=== PATIENT | female | born 1935 | race Caucasian/White ===

== ENCOUNTER 2017-11-12 18:51 | Emergency (ER) | payer OTHER, BC ==
[~2017-11-12] VITALS: Ht 142.2 cm; Wt 45.8 kg
[~2017-11-12 18:51] MED LIST: ARAVA10 MG PO; CALCIUM + D SO1 EACH PO; CELEXA10 MG PO; DILANTIN100 MG PO; FOLIC ACID1 MG PO; LEUCOVORIN CALCI5 MG PO; MEDROL8 MG PO; METHOTREXATE2.5 MG PO; MICROZIDE12.5 M1 PO; MYRBETRIQ50 MG PO; PHENOBARBITAL16.2 MG PO; TYLENOL REGULA325 MG PO
[2017-11-12 20:55] LABS: HEMOGLOBIN 9.4 G/DL (11.9-15.5); MCHC 33.6 G/DL (30.0-36.0); RBC DIS.WIDTH-CV 12.4 % (11.8-14.6); RBC DIS.WIDTH-SD 43.3 % (39-53); RED BLOOD COUNT 2.94 M/uL (3.80-5.20)
[2017-11-12 21:00] LABS: INTER. NORMALIZED RATIO 1.1
[2017-11-12 21:03] LABS: MCV 95.2 FL (83-99); PLATELET COUNT 145 K/uL (156-360); PTT 24.6 SEC (25-37)
[2017-11-12 21:04] LABS: CHLORIDE 107 mEq/L (99-109); POTASSIUM 3.8 mEq/L (3.7-5.4); SODIUM 140 mEq/L (136-147)
[2017-11-12 21:06] LABS: GLUCOSE 84 mg/dL (70-99)
[2017-11-12 21:10] LABS: CREATININE 0.7 mg/dL (0.6-1.3); GFR ESTIMATE (CALCULATED) > 59 mL/min/
[2017-11-12 21:11] LABS: UREA NITROGEN (BUN) 17 mg/dL (9-23)
[2017-11-12] MEDS ORDERED: LOVENOX40 MG/0.4 SC (21:23)
[2017-11-12 22:00] VITALS: BP 149/84
[2017-11-12] MEDS ORDERED: COUMADIN5 MG PO (22:05)
== END 2017-11-12 22:00 | disposition home or self-care (01) ==
LOC: EME 18:51
PROVIDERS: Emergency Medicine
DX: I82.412 Acute embolism and thrombosis of left femoral vein (principal); I89.0 Lymphedema, not elsewhere classified; G40.909 Epilepsy, unspecified, not intractable, without status epilepticus
CPT/HCPCS: 80048; 85027; 85610; 85730; 93971; 99281; 99284; J1650

== ENCOUNTER 2017-11-15 08:11 | Emergency (ER) | payer OTHER, BC ==
[~2017-11-15] VITALS: Ht 137.2 cm; Wt 44.1 kg
[~2017-11-15 08:11] MED LIST changes: +COUMADIN5 MG PO; +LOVENOX40 MG/0.4 SC
[2017-11-15 09:00] LABS: BASOPHIL (%) 0.3 % (0-1); EOSINOPHIL (%) 0.7 % (0-5); EOSINOPHIL COUNT 0.1 K/uL (0-0.3); HEMOGLOBIN 9.3 G/DL (11.9-15.5); IMMATURE GRANULOCYTE (%) 0.3 % (0.0-0.7); LYMPHOCYTE (%) 12.1 % (15-42); LYMPHOCYTE COUNT 0.8 K/uL (1.0-2.8); MCH 31.3 PG (29.0-34.0); MCHC 33.2 G/DL (30.0-36.0); MCV 94.3 FL (83-99); MONOCYTE (%) 4.6 % (3-12); MONOCYTE COUNT 0.3 K/uL (0-0.8); NEUTROPHIL COUNT 5.7 K/uL (1.8-6.4); PLATELET COUNT 154 K/uL (156-360); RBC DIS.WIDTH-CV 12.4 % (11.8-14.6); RBC DIS.WIDTH-SD 42.8 % (39-53); RED BLOOD COUNT 2.97 M/uL (3.80-5.20); WHITE BLOOD COUNT 6.9 K/uL (4.1-10.2)
[2017-11-15 09:02] LABS: INTER. NORMALIZED RATIO 1.7
[2017-11-15 09:06] LABS: ALBUMIN 3.1 g/dL (3.2-4.8); CHLORIDE 104 mEq/L (99-109); POTASSIUM 3.5 mEq/L (3.7-5.4); SODIUM 141 mEq/L (136-147)
[2017-11-15 09:08] LABS: GLUCOSE 90 mg/dL (70-99)
[2017-11-15 09:09] LABS: TOTAL PROTEIN 6.5 g/dL (6.4-8.3)
[2017-11-15 09:10] LABS: TOTAL BILIRUBIN 0.3 mg/dL (0.0-1.0)
[2017-11-15 09:12] LABS: ALKALINE PHOSPHATASE 143 IU/L (3-129); CREATININE 0.7 mg/dL (0.6-1.3); GFR ESTIMATE (CALCULATED) > 59 mL/min/
[2017-11-15 09:13] LABS: UREA NITROGEN (BUN) 16 mg/dL (9-23)
[2017-11-15 09:14] LABS: AST (GOT) 31 IU/L (2-34)
[2017-11-15 09:15] LABS: ALT (GPT) 18 IU/L (3-49)
[2017-11-15 09:23] LABS: BILIRUBIN NEGATIVE; BLOOD SMALL; COLOR YELLOW ((YELLOW)); GLUCOSE (STRIP) NEGATIVE; KETONES NEGATIVE; LEUKOCYTES LARGE; NITRITE NEGATIVE; PROTEIN (STRIP) 30; SPECIFIC GRAVITY 1.013 (1.000-1.030); UROBILINOGEN 0.2 MG/DL (0.2-1.0)
[2017-11-15 09:27] LABS: APPEARANCE CLOUDY ((CLEAR))
[2017-11-15 09:39] LABS: BACTERIA RARE /HPF; EPITHELIAL CELLS RARE /HPF; MUCUS 1+ /LPF; RED BLOOD CELLS 20-30 /HPF (0-5); UCUL ADDED? YES; WHITE BLOOD CELLS TNTC /HPF (0-5)
[2017-11-15] MEDS ORDERED: KEFLEX500 MG PO (12:50)
[2017-11-15 13:50] VITALS: BP 135/63
== END 2017-11-15 13:50 ==
LOC: EME 08:11
PROVIDERS: Nurse Practitioner Family
DX: N39.0 Urinary tract infection, site not specified (principal); R50.9 Fever, unspecified; Z86.718 Personal history of other venous thrombosis and embolism; Z79.01 Long term (current) use of anticoagulants; D64.9 Anemia, unspecified; G40.909 Epilepsy, unspecified, not intractable, without status epilepticus
CPT/HCPCS: 80053; 81003; 83605; 85025; 85610; 85730; 87040; 87077; 87086; 87186; 93005; 99281; 99285; J0696; J7030

== ENCOUNTER → 2017-12-02 | Outpatient (CLI) | payer OTHER, BC ==
[2017-12-02] VITALS (8 sets, daily range): BP systolic 125–148; BP diastolic 54–90
[~2017-12-02] VITALS: Ht 137.2 cm; Wt 46.0 kg
[~2017-12-02] MED LIST changes: +ELIQUIS2.5 MG PO; +KEFLEX500 MG PO
== END | disposition home or self-care (01) ==
LOC: IVINF 15:30
DX: D64.9 Anemia, unspecified (principal)
CPT/HCPCS: 36415; 36430; 86850; 86900; 86901; 86920; 86999; 96374; 96375; J1200; J1940

== ENCOUNTER 2017-12-19 17:43 | Inpatient (IN) | payer OTHER, BC ==
[~2017-12-19] VITALS: Ht 162.6 cm; Wt 50.8 kg
[2017-12-19 18:15] LABS: BASOPHIL (%) 0.3 % (0-1); EOSINOPHIL (%) 0.8 % (0-5); EOSINOPHIL COUNT 0.1 K/uL (0-0.3); HEMATOCRIT 34.6 % (36.0-46.0); IMMATURE GRANULOCYTE (%) 0.4 % (0.0-0.7); LYMPHOCYTE (%) 8.7 % (15-42); LYMPHOCYTE COUNT 0.7 K/uL (1.0-2.8); MCH 30.1 PG (29.0-34.0); MCHC 31.8 G/DL (30.0-36.0); MCV 94.5 FL (83-99); MONOCYTE (%) 6.4 % (3-12); MONOCYTE COUNT 0.5 K/uL (0-0.8); NEUTROPHIL (%) 83.4 % (45-76); NEUTROPHIL COUNT 6.4 K/uL (1.8-6.4); PLATELET COUNT 96 K/uL (156-360); RBC DIS.WIDTH-CV 14.1 % (11.8-14.6); RED BLOOD COUNT 3.66 M/uL (3.80-5.20); WHITE BLOOD COUNT 7.6 K/uL (4.1-10.2)
[2017-12-19 18:24] LABS: ALBUMIN 3.4 g/dL (3.2-4.8); CHLORIDE 104 mEq/L (99-109); POTASSIUM 3.3 mEq/L (3.7-5.4); SODIUM 141 mEq/L (136-147)
[2017-12-19 18:27] LABS: GLUCOSE 166 mg/dL (70-99); TOTAL PROTEIN 6.8 g/dL (6.4-8.3)
[2017-12-19 18:29] LABS: TOTAL BILIRUBIN 0.2 mg/dL (0.0-1.0)
[2017-12-19 18:30] LABS: ALKALINE PHOSPHATASE 185 IU/L (3-129); CREATININE 0.7 mg/dL (0.6-1.3); GFR ESTIMATE (CALCULATED) > 59 mL/min/
[2017-12-19 18:31] LABS: UREA NITROGEN (BUN) 23 mg/dL (9-23)
[2017-12-19 18:32] LABS: AST (GOT) 31 IU/L (2-34)
[2017-12-19 18:33] LABS: ALT (GPT) 18 IU/L (3-49)
[2017-12-19 18:34] LABS: LIPASE 28 U/L (1.0-51.0)
[2017-12-19 18:37] LABS: TROP-I INTERPRETATION NEGATIVE; TROPONIN-I 0.02 ng/mL (0.0-0.30)
[2017-12-19 19:44] LABS: INTER. NORMALIZED RATIO 1.2
[2017-12-19 19:46] LABS: PTT 31.5 SEC (25-37)
[2017-12-19] MEDS ORDERED: PRADAXA150 MG PO (22:22)
[2017-12-19] MEDS ORDERED: FAMOTIDINE40 MG PO (22:22)
[2017-12-19] MEDS ORDERED: CEPHALEXIN250 MG PO (22:22)
[2017-12-19] MEDS ORDERED: LEFLUNOMIDE20 MG PO (22:23)
[2017-12-19] MEDS ORDERED: METHYLPREDNISOLO4 MG PO (22:24)
[2017-12-19] MEDS ORDERED: LEUCOVORIN CALCI5 MG PO (22:26)
[2017-12-19] MEDS ORDERED: MICROZIDE12.5 M1 PO (22:27)
[2017-12-19 22:52] LABS: APPEARANCE SL.HAZY ((CLEAR)); BILIRUBIN NEGATIVE; BLOOD LARGE; COLOR YELLOW ((YELLOW)); GLUCOSE (STRIP) NEGATIVE; KETONES NEGATIVE; LEUKOCYTES LARGE; NITRITE NEGATIVE; PROTEIN (STRIP) NEGATIVE; SPECIFIC GRAVITY 1.027 (1.000-1.030); UROBILINOGEN 0.2 MG/DL (0.2-1.0)
[2017-12-19 22:58] LABS: BACTERIA RARE /HPF; EPITHELIAL CELLS RARE /HPF; MUCUS TRACE /LPF; RED BLOOD CELLS TNTC /HPF (0-5); UCUL ADDED? YES; WHITE BLOOD CELLS TNTC /HPF (0-5)
[2017-12-20 00:42] VITALS: BP 160/72
[2017-12-20 04:10] VITALS: BP 96/55
[2017-12-20 05:43] LABS: HEMATOCRIT 29.4 % (36.0-46.0); HEMOGLOBIN 9.1 G/DL (11.9-15.5); MCH 29.3 PG (29.0-34.0); MCV 94.5 FL (83-99); PLATELET COUNT 76 K/uL (156-360); RBC DIS.WIDTH-CV 14.3 % (11.8-14.6); RBC DIS.WIDTH-SD 48.7 % (39-53); RED BLOOD COUNT 3.11 M/uL (3.80-5.20); WHITE BLOOD COUNT 7.7 K/uL (4.1-10.2)
[2017-12-20 06:02] LABS: CHLORIDE 109 MEQ/L (99-109); CREATININE 0.7 MG/DL (0.6-1.3); GFR ESTIMATE (CALCULATED) > 59 mL/min/; GLUCOSE 97 mg/dL (70-99); POTASSIUM 2.7 MEQ/L (3.7-5.4); SODIUM 142 MEQ/L (136-147); UREA NITROGEN (BUN) 21 mg/dL (9-23)
[2017-12-20 07:05] VITALS: BP 117/78
[2017-12-20 11:29] LABS: TROP-I INTERPRETATION NEGATIVE; TROPONIN-I 0.21 ng/mL (0.0-0.30)
[2017-12-20 15:43] VITALS: BP 124/57
[2017-12-20 15:53] LABS: CHLORIDE 108 MEQ/L (99-109); CREATININE 0.5 MG/DL (0.6-1.3); GFR ESTIMATE (CALCULATED) > 59 mL/min/; POTASSIUM 3.2 MEQ/L (3.7-5.4); SODIUM 141 MEQ/L (136-147); UREA NITROGEN (BUN) 19 mg/dL (9-23)
[2017-12-20 15:56] LABS: TROP-I INTERPRETATION NEGATIVE
[2017-12-20 16:00] LABS: GLUCOSE 65 mg/dL (70-99)
[2017-12-20 19:22] LABS: TROP-I INTERPRETATION INDETERMINATE; TROPONIN-I 0.31 ng/mL (0.0-0.30)
[2017-12-20 20:20] VITALS: BP 120/56
[2017-12-21] VITALS (7 sets, daily range): BP systolic 114–140; BP diastolic 56–77
[2017-12-21 05:20] LABS: BASOPHIL (%) 0.5 % (0-1); EOSINOPHIL (%) 0.8 % (0-5); EOSINOPHIL COUNT 0.1 K/uL (0-0.3); HEMATOCRIT 28.9 % (36.0-46.0); HEMOGLOBIN 9.3 G/DL (11.9-15.5); IMMATURE GRANULOCYTE (%) 0.3 % (0.0-0.7); LYMPHOCYTE (%) 10.3 % (15-42); LYMPHOCYTE COUNT 0.6 K/uL (1.0-2.8); MCH 30.2 PG (29.0-34.0); MCHC 32.2 G/DL (30.0-36.0); MCV 93.8 FL (83-99); MONOCYTE (%) 7.6 % (3-12); MONOCYTE COUNT 0.5 K/uL (0-0.8); NEUTROPHIL (%) 80.5 % (45-76); NEUTROPHIL COUNT 4.8 K/uL (1.8-6.4); PLATELET COUNT 75 K/uL (156-360); RBC DIS.WIDTH-CV 14.2 % (11.8-14.6); RBC DIS.WIDTH-SD 48.8 % (39-53); RED BLOOD COUNT 3.08 M/uL (3.80-5.20); WHITE BLOOD COUNT 5.9 K/uL (4.1-10.2)
[2017-12-21 06:18] LABS: ERTH.SED.RATE 36 MM/HR (0-30)
[2017-12-21 08:30] LABS: FOLIC ACID (FOLATE) > 22.0 NG/ML (5.0-22.0)
[2017-12-21 08:38] LABS: C-REACTIVE PROTEIN 147.3 MG/L (0-10); CHLORIDE 111 MEQ/L (99-109); CREATININE 0.5 MG/DL (0.6-1.3); FERRITIN 756 NG/ML (10-291); GFR ESTIMATE (CALCULATED) > 59 mL/min/; GLUCOSE 71 mg/dL (70-99); MAGNESIUM 1.6 mg/dl (1.3-2.7); POTASSIUM 3.6 MEQ/L (3.7-5.4); SODIUM 141 MEQ/L (136-147); UREA NITROGEN (BUN) 15 mg/dL (9-23)
[2017-12-21 13:43] LABS: TROP-I INTERPRETATION NEGATIVE; TROPONIN-I 0.19 ng/mL (0.0-0.30)
[2017-12-21 19:54] LABS: TROP-I INTERPRETATION NEGATIVE; TROPONIN-I 0.17 ng/mL (0.0-0.30)
[2017-12-22] VITALS (7 sets, daily range): BP systolic 113–141; BP diastolic 58–73
[2017-12-23 04:05] VITALS: BP 135/60
[2017-12-23 08:01] VITALS: BP 129/72
[2017-12-23 11:40] VITALS: BP 125/62
[2017-12-23 15:46] VITALS: BP 130/56
[2017-12-23 19:42] VITALS: BP 118/57
[2017-12-24 00:30] VITALS: BP 123/67
[2017-12-24 04:10] VITALS: BP 150/69
[2017-12-24 07:25] VITALS: BP 172/72
[2017-12-24 11:44] VITALS: BP 144/65
[2017-12-24 15:03] VITALS: BP 133/59
[2017-12-24 19:26] VITALS: BP 135/62
[2017-12-25 00:12] VITALS: BP 126/66
[2017-12-25 03:50] VITALS: BP 128/66
[2017-12-25 06:57] VITALS: BP 126/81
[2017-12-25 11:09] VITALS: BP 132/67
[2017-12-25 15:37] VITALS: BP 136/71
[2017-12-25 20:07] VITALS: BP 117/56
[2017-12-26] VITALS (7 sets, daily range): BP systolic 131–166; BP diastolic 61–65
[2017-12-26 08:58] LABS: CHLORIDE 105 MEQ/L (99-109); CREATININE 0.5 MG/DL (0.6-1.3); GFR ESTIMATE (CALCULATED) > 59 mL/min/; GLUCOSE 98 mg/dL (70-99); SODIUM 141 MEQ/L (136-147); UREA NITROGEN (BUN) 11 mg/dL (9-23)
[2017-12-26 09:04] LABS: POTASSIUM 2.7 MEQ/L (3.7-5.4)
[2017-12-27 03:40] VITALS: BP 137/61
[2017-12-27 07:40] VITALS: BP 145/67
[2017-12-27 10:07] VITALS: BP 146/69
[2017-12-27 10:31] LABS: BASOPHIL (%) 0.3 % (0-1); EOSINOPHIL (%) 1.9 % (0-5); EOSINOPHIL COUNT 0.1 K/uL (0-0.3); HEMATOCRIT 35.1 % (36.0-46.0); IMMATURE GRANULOCYTE (%) 0.3 % (0.0-0.7); LYMPHOCYTE (%) 9.3 % (15-42); LYMPHOCYTE COUNT 0.6 K/uL (1.0-2.8); MCH 30.4 PG (29.0-34.0); MCV 91.9 FL (83-99); MONOCYTE (%) 7.5 % (3-12); MONOCYTE COUNT 0.5 K/uL (0-0.8); NEUTROPHIL (%) 80.7 % (45-76); PLATELET COUNT 93 K/uL (156-360); RBC DIS.WIDTH-CV 15.2 % (11.8-14.6); RBC DIS.WIDTH-SD 50.9 % (39-53); RED BLOOD COUNT 3.82 M/uL (3.80-5.20); WHITE BLOOD COUNT 6.2 K/uL (4.1-10.2)
[2017-12-27 10:32] LABS: HEMOGLOBIN 11.6 G/DL (11.9-15.5)
[2017-12-27 10:54] LABS: CHLORIDE 107 MEQ/L (99-109); CREATININE 0.4 MG/DL (0.6-1.3); GFR ESTIMATE (CALCULATED) > 59 mL/min/; GLUCOSE 80 mg/dL (70-99); SODIUM 142 MEQ/L (136-147); UREA NITROGEN (BUN) 7 mg/dL (9-23)
[2017-12-27] MEDS ORDERED: PACERONE200 MG PO (14:27)
[2017-12-27] MEDS ORDERED: LOPRESSOR25 MG PO (14:27)
[2017-12-27] MEDS ORDERED: LEVAQUIN750 MG PO (14:42)
[2017-12-27 16:07] VITALS: BP 139/65
== END 2017-12-27 16:26 | DRG 167 ==
LOC: EME 17:43 → 4SOUTH 22:24 → EDOF 22:24 → 4EAST 22:24 → ENRESERV 22:25 → 4SOUTH 23:49 → ENRESERV 12-21 19:35 → 4EAST 12-21 19:53 → ENPENDDIS 12-27 → 4EAST 12-27 16:26
PROVIDERS: Emergency Medicine; Hospitalist; Internal Medicine Hematology & Oncology; Physician Assistant; Student in an Organized Health Care Education/Training Program
PROC: 06H03DZ Insertion of Intraluminal Device into Inferior Vena Cava, Percutaneous Approach (ICD-10-PCS; principal; 2017-12-27)
DX: J18.9 Pneumonia, unspecified organism (principal); E44.0 Moderate protein-calorie malnutrition; D69.6 Thrombocytopenia, unspecified; D64.89 Other specified anemias; T45.1X5A Adverse effect of antineoplastic and immunosuppressive drugs, initial encounter; E87.6 Hypokalemia; I48.0 Paroxysmal atrial fibrillation; G40.909 Epilepsy, unspecified, not intractable, without status epilepticus; I89.0 Lymphedema, not elsewhere classified; I44.7 Left bundle-branch block, unspecified; I10 Essential (primary) hypertension; G89.29 Other chronic pain; M06.9 Rheumatoid arthritis, unspecified; Z86.718 Personal history of other venous thrombosis and embolism; Z79.01 Long term (current) use of anticoagulants; Z68.1 Body mass index [BMI] 19.9 or less, adult
CPT/HCPCS: 71250; 71275; 73502; 74177; 76705; 78227; 80048; 80048 91; 80053; 80185; 81003; 82607; 82728; 82746; 82948; 83605; 83690; 83735; 84132 91; 84443; 84484; 85025; 85027; 85610; 85651; 85730; 86140; 87040; 87086; 93005; 93306; 93970; 97530 GP; 99281; 99285; A6214; A9537; C1769; C1894; J1160; J1200; J1956; J2250; J2543; J2805; J3480; J7030; J7040; J8610; S0028; S0030